=== PATIENT | male | born 1940 | race Two or more races ===

== ENCOUNTER 2020-11-02 09:47 | Outpatient (CLI) | payer MEDICARE, BC ==
[2020-11-02 10:06] VITALS: BP 146/77
--- NOTE | 2020-11-02 10:59 | Consultation ---
DATE OF CONSULTATION: 11/02/2020 GASTROENTEROLOGY CONSULTATION CONSULTING PHYSICIAN: Lon Monreal MD. CHIEF COMPLAINT: Referral for chronic GERD. HISTORY OF PRESENT ILLNESS: This is a 80-year-old male with past medical history of gastric cancer, status post partial gastrectomy in 2006, had a recurrent gastric cancer in 2016, was treated with chemotherapy, now apparently cleared of cancer. Apparently, he had an endoscopy and colonoscopy by Dr. Nick Adan a few months ago and everything was seemed to be okay. The patient is still having acid reflux, especially at night. He says he eats at 6 p.m., but he wakes up in the middle of night having acid reflux. The patient was previously on Protonix, but he has not been it taking anymore. PAST MEDICAL HISTORY: 1. History of gastric cancer, status post partial gastrectomy. 2. Hypertension. 3. Depression. 4. Anxiety. 5. GERD. ALLERGIES: No known allergies. MEDICATIONS: Please see medication reconciliation list. SOCIAL HISTORY: The patient denies any tobacco, alcohol, or drug abuse. FAMILY HISTORY: Noncontributory. REVIEW OF SYSTEMS: A 10-point review of systems was performed and pertinent positives in HPI. PHYSICAL EXAMINATION: VITAL SIGNS: Temperature 97.6, blood pressure 168/77, pulse , respirations 20. HEENT: Normocephalic and atraumatic. Sclerae are anicteric. NECK: Supple. No evidence of obvious lymphadenopathy. CARDIOVASCULAR: Regular rate and rhythm. Plus S1-S2. LUNGS: Decreased breath sounds bilaterally based on the supine exam. ABDOMEN: Soft, nontender. No rebound. No guarding. No peritoneal sign. EXTREMITIES: No cyanosis, no clubbing, no edema. ASSESSMENT AND PLAN: This is a 80-year-old male with history of gastric cancer in 2007, recurrence in 2016, now in remission with now chronic reflux symptoms. Plan to start the patient on Protonix 40 mg half an hour before dinner. The patient was instructed to start Pepcid if the Protonix before dinner does not hold his symptoms. He was instructed to take the Pepcid one week up he decided to use it. Meanwhile, if the above plan does not work, to come back, we possibly either add a baclofen or Reglan at that time. Lon Monreal M.D. DR: MARINA JOB#: [id number] CC:
== END 2020-11-02 11:47 | disposition home or self-care (01) ==
LOC: PAN 09:47
DX: K21.9 Gastro-esophageal reflux disease without esophagitis (principal); I10 Essential (primary) hypertension; F32.9 Major depressive disorder, single episode, unspecified; F41.9 Anxiety disorder, unspecified; Z85.00 Personal history of malignant neoplasm of unspecified digestive organ; Z90.49 Acquired absence of other specified parts of digestive tract
CPT/HCPCS: 99212